=== PATIENT | male | born 1995 | race Caucasian/White ===

== ENCOUNTER 2017-12-14 19:34 | Emergency (ER) | payer SELFPAY ==
[~2017-12-14] VITALS: Ht 188 cm; Wt 81.7 kg
[2017-12-14] MEDS ORDERED: ALBU4 PO (19:48)
== END 2017-12-14 20:00 | disposition home or self-care (01) ==
LOC: ER 19:34
DX: R07.9 Chest pain, unspecified (principal); J45.909 Unspecified asthma, uncomplicated; F17.210 Nicotine dependence, cigarettes, uncomplicated
CPT/HCPCS: 99283

== ENCOUNTER 2018-08-16 13:49 | Emergency (ER) | payer MEDICAID ==
[~2018-08-16] VITALS: Ht 180.3 cm; Wt 90.7 kg
[~2018-08-16 13:49] MED LIST: ALBU4 PO
[2018-08-16] MEDS ORDERED: CLARITIN10 MG PO (14:06)
[2018-08-16] MEDS ORDERED: ALBU90OI INH (14:06)
== END 2018-08-16 14:11 | disposition home or self-care (01) ==
LOC: ER 13:49
DX: R06.00 Dyspnea, unspecified (principal); R05 Cough; F17.210 Nicotine dependence, cigarettes, uncomplicated; Z91.048 Other nonmedicinal substance allergy status
CPT/HCPCS: 99283

== ENCOUNTER 2018-12-14 16:19 | Emergency (ER) | payer OTHER ==
[~2018-12-14] VITALS: Ht 188 cm; Wt 83.9 kg
[~2018-12-14 16:19] MED LIST changes: +ALBU90OI INH; +CLARITIN10 MG PO
[2018-12-14] MEDS ORDERED: Naprosyn500 MG PO (18:37)
== END 2018-12-14 19:17 | disposition home or self-care (01) ==
LOC: ER 16:19
DX: S43.401A Unspecified sprain of right shoulder joint, initial encounter (principal); Z91.09 Other allergy status, other than to drugs and biological substances; Z79.899 Other long term (current) drug therapy; F17.290 Nicotine dependence, other tobacco product, uncomplicated; W19.XXXA Unspecified fall, initial encounter
CPT/HCPCS: 73030; 99283-25

== ENCOUNTER 2020-01-02 19:56 | Emergency (ER) | payer OTHER ==
[~2020-01-02] VITALS: Ht 188 cm; Wt 81.7 kg
[~2020-01-02 19:56] MED LIST changes: +Naprosyn500 MG PO
[2020-01-02] MEDS ORDERED: IBUP200 (20:08)
[2020-01-02] MEDS ORDERED: KETO10 PO (20:24)
[2020-01-02] MEDS ORDERED: Cyclobenzaprine5 MG PO (20:24)
== END 2020-01-02 20:45 | disposition home or self-care (01) ==
LOC: ER 19:56
DX: S39.012A Strain of muscle, fascia and tendon of lower back, initial encounter (principal); F17.200 Nicotine dependence, unspecified, uncomplicated; Z91.048 Other nonmedicinal substance allergy status; X50.0XXA Overexertion from strenuous movement or load, initial encounter; Y99.0 Civilian activity done for income or pay
CPT/HCPCS: 96372; 99283-25; J1885

== ENCOUNTER 2022-05-19 13:24 | Emergency (ER) | payer OTHER ==
[~2022-05-19] VITALS: Ht 188 cm; Wt 79.4 kg
[~2022-05-19 13:24] MED LIST changes: +Cyclobenzaprine5 MG PO; +IBUP200; +KETO10 PO
[2022-05-19 14:23] LABS: BASOPHILS ABSOLUTE AUTO 0.04 K/mm3 (0.00-0.23); BASOPHILS PERCENT AUTO 1 % (0-2); EOSINOPHILS ABSOLUTE AUTO 0.48 K/mm3 (0.00-0.68); EOSINOPHILS PERCENT AUTO 7 % (0-6); Hematocrit 39.3 % (37.0-53.0); IMMATURE GRAN ABSOLUTE AUTO 0.01 K/mm3 (0.00-0.10); IMMATURE GRAN PERCENT AUTO 0 % (0-1); LYMPHOCYTES PERCENT AUTO 24 % (21-46); MONOCYTES ABSOLUTE AUTO 0.75 K/mm3 (0.16-1.47); MONOCYTES PERCENT AUTO 11 % (4-13); Mean Corpuscular HGB 31.9 pg (26.0-34.0); Mean Corpuscular HGB Conc 35.6 g/dL (31.5-36.5); Mean Corpuscular Volume 90 fL (80-100); Mean Platelet Volume 9.9 fL (9.1-12.4); NEUTROPHILS PERCENT AUTO 57 % (41-73); Platelet Count 318 K/mm3 (150-400); RDW Coefficient Variation 11.6 % (11.7-14.2); RDW Standard Deviation 38.4 fL (35.1-46.3); Red Blood Cell Count 4.39 M/mm3 (4.30-5.90); White Blood Cell Count 6.98 K/mm3 (4.00-11.30)
[2022-05-19 14:59] LABS: Albumin, Blood 4.1 g/dL (3.4-5.0); Albumin/Globulin Ratio 1.1 (0.8-1.8); Bilirubin, Total 1.5 mg/dL (0.1-1.0); Bun/Creatinine Ratio 8.6 (12.0-20.0); Calcium, Blood 9.7 mg/dL (8.5-10.1); Creatinine, Blood 0.93 mg/dL (0.60-1.20); Globulin, Blood 3.7 g/dL (2.2-4.0); Potassium, Blood 3.6 mmol/L (3.5-5.5); Total Protein, Blood 7.8 g/dL (6.4-8.2)
== END 2022-05-19 16:34 | disposition home or self-care (01) ==
LOC: ER 13:24
PROVIDERS: Emergency Medicine
DX: R07.89 Other chest pain (principal); R20.2 Paresthesia of skin; F19.10 Other psychoactive substance abuse, uncomplicated; F41.9 Anxiety disorder, unspecified; J45.909 Unspecified asthma, uncomplicated; F17.290 Nicotine dependence, other tobacco product, uncomplicated
CPT/HCPCS: 71046; 80053; 84484; 85025; J7030

== ENCOUNTER 2023-02-23 22:34 | Emergency (ER) | payer OTHER ==
[~2023-02-23] VITALS: Ht 177.8 cm; Wt 59.0 kg
[2023-02-23 23:21] LABS: BASOPHILS ABSOLUTE AUTO 0.09 K/mm3 (0.00-0.23); BASOPHILS PERCENT AUTO 1 % (0-2); EOSINOPHILS PERCENT AUTO 8 % (0-6); Hematocrit 49.4 % (37.0-53.0); Hemoglobin 16.3 g/dL (13.5-17.5); IMMATURE GRAN ABSOLUTE AUTO 0.03 K/mm3 (0.00-0.10); IMMATURE GRAN PERCENT AUTO 0 % (0-1); LYMPHOCYTES ABSOLUTE AUTO 3.24 K/mm3 (0.84-5.20); LYMPHOCYTES PERCENT AUTO 27 % (21-46); MONOCYTES ABSOLUTE AUTO 0.96 K/mm3 (0.16-1.47); MONOCYTES PERCENT AUTO 8 % (4-13); Mean Corpuscular HGB 30.4 pg (26.0-34.0); Mean Corpuscular Volume 92 fL (80-100); Mean Platelet Volume 8.9 fL (9.1-12.4); NEUTROPHILS PERCENT AUTO 55 % (41-73); Platelet Count 330 K/mm3 (150-400); RDW Coefficient Variation 16.5 % (11.7-14.2); RDW Standard Deviation 54.6 fL (35.1-46.3); Red Blood Cell Count 5.37 M/mm3 (4.30-5.90); White Blood Cell Count 11.92 K/mm3 (4.00-11.30)
[2023-02-23 23:39] LABS: Albumin, Blood 3.9 g/dL (3.4-5.0); Bilirubin, Total 0.7 mg/dL (0.1-1.0); Bun/Creatinine Ratio 10.3 (12.0-20.0); Creatinine, Blood 0.88 mg/dL (0.60-1.20); Globulin, Blood 4.1 g/dL (2.2-4.0); Potassium, Blood 4.1 mmol/L (3.5-5.5)
== END 2023-02-23 23:59 | disposition home or self-care (01) ==
LOC: ER 22:34
PROVIDERS: Emergency Medicine
DX: T59.891A Toxic effect of other specified gases, fumes and vapors, accidental (unintentional), initial encounter (principal); J68.3 Other acute and subacute respiratory conditions due to chemicals, gases, fumes and vapors; J45.901 Unspecified asthma with (acute) exacerbation; R11.2 Nausea with vomiting, unspecified
CPT/HCPCS: 36415; 80053; 85025; 94640; 94664; 94762; 99284-25; A9270

== ENCOUNTER 2023-07-11 21:19 | Emergency (ER) | payer OTHER ==
[~2023-07-11] VITALS: Ht 188 cm; Wt 81.7 kg
[2023-07-11 21:52] VITALS: BP 118/85
[2023-07-11] MEDS ORDERED: ALBU90OI INH (21:56)
== END 2023-07-11 23:05 | disposition home or self-care (01) ==
LOC: ER 21:19
DX: S90.32XA Contusion of left foot, initial encounter (principal); S90.31XA Contusion of right foot, initial encounter; V09.9XXA Pedestrian injured in unspecified transport accident, initial encounter; J45.909 Unspecified asthma, uncomplicated; Z87.891 Personal history of nicotine dependence
CPT/HCPCS: 73620

== ENCOUNTER 2023-10-14 20:40 | Emergency (ER) | payer OTHER ==
[~2023-10-14] VITALS: Ht 188 cm; Wt 77.1 kg
[2023-10-14 20:54] LABS: BASOPHILS ABSOLUTE AUTO 0.04 K/mm3 (0.00-0.23); BASOPHILS PERCENT AUTO 0 % (0-2); EOSINOPHILS ABSOLUTE AUTO 0.54 K/mm3 (0.00-0.68); EOSINOPHILS PERCENT AUTO 5 % (0-6); Hematocrit 39.9 % (37.0-53.0); Hemoglobin 13.8 g/dL (13.5-17.5); IMMATURE GRAN ABSOLUTE AUTO 0.04 K/mm3 (0.00-0.10); IMMATURE GRAN PERCENT AUTO 0 % (0-1); LYMPHOCYTES ABSOLUTE AUTO 1.82 K/mm3 (0.84-5.20); LYMPHOCYTES PERCENT AUTO 17 % (21-46); MONOCYTES ABSOLUTE AUTO 1.22 K/mm3 (0.16-1.47); MONOCYTES PERCENT AUTO 11 % (4-13); Mean Corpuscular HGB 31.4 pg (26.0-34.0); Mean Corpuscular HGB Conc 34.6 g/dL (31.5-36.5); Mean Corpuscular Volume 91 fL (80-100); Mean Platelet Volume 9.1 fL (9.1-12.4); NEUTROPHILS ABSOLUTE AUTO 7.11 K/mm3 (1.96-9.15); NEUTROPHILS PERCENT AUTO 66 % (41-73); Platelet Count 274 K/mm3 (150-400); RDW Coefficient Variation 12.5 % (11.7-14.2); RDW Standard Deviation 41.6 fL (35.1-46.3); White Blood Cell Count 10.77 K/mm3 (4.00-11.30)
[2023-10-14 21:12] LABS: Albumin, Blood 4.1 g/dL (3.4-5.0); Albumin/Globulin Ratio 1.1 (0.8-1.8); Bilirubin, Total 0.8 mg/dL (0.1-1.0); Bun/Creatinine Ratio 12.5 (12.0-20.0); Calcium, Blood 8.7 mg/dL (8.5-10.1); Creatinine, Blood 1.04 mg/dL (0.60-1.20); Globulin, Blood 3.9 g/dL (2.2-4.0); Potassium, Blood 3.8 mmol/L (3.5-5.5)
[2023-10-14 22:30] VITALS: BP 141/95
== END 2023-10-14 22:45 | disposition home or self-care (01) ==
LOC: ER 20:40
PROVIDERS: Student in an Organized Health Care Education/Training Program
DX: S02.2XXA Fracture of nasal bones, initial encounter for closed fracture (principal); S00.511A Abrasion of lip, initial encounter; R68.84 Jaw pain; Y04.0XXA Assault by unarmed brawl or fight, initial encounter; J45.909 Unspecified asthma, uncomplicated; Z23 Encounter for immunization
CPT/HCPCS: 70450; 70486; 72125; 80053; 85025; 90471; 90714; 90715; 96374; 99285-25; J1885; J7030

== ENCOUNTER 2025-04-08 02:07 | Emergency (ER) | payer OTHER ==
[~2025-04-08] VITALS: Ht 188 cm; Wt 77.1 kg
[2025-04-08 02:24] VITALS: BP 133/86
[2025-04-08 02:46] LABS: Source, Urine Clean Catch
[2025-04-08 02:48] LABS: Bilirubin, Urine Neg (Neg); Blood, Urine 4+ (Neg); Glucose Qualitative, Urine Neg (Neg); Ketones, Urine Neg (Neg); Leukocyte Esterase, Urine 1+ (Neg); Nitrite, Urine Neg (Neg); Protein, Urine Neg (Neg); Specific Gravity, Urine 1.015 (1.003-1.022); Urobilinogen, Urine NORM (Normal)
[2025-04-08 03:02] LABS: Appearance, Urine Clear (Clear); Color, Urine Yellow (P-Yellow)
[2025-04-08 03:04] LABS: Bacteria Mod /hpf; Squamous Epithelial Cells Few /hpf (Few); White Blood Cells, Urine 0-2 /hpf (0-5)
[2025-04-08] MEDS ORDERED: Ketorolac Tromethamine 30mg Vial IV ONE (03:20)
[2025-04-08 05:11] LABS: BASOPHILS ABSOLUTE AUTO 0.06 K/mm3 (0.00-0.23); BASOPHILS PERCENT AUTO 1 % (0-2); EOSINOPHILS ABSOLUTE AUTO 0.56 K/mm3 (0.00-0.68); EOSINOPHILS PERCENT AUTO 5 % (0-6); Hematocrit 41.3 % (37.0-53.0); Hemoglobin 13.9 g/dL (13.5-17.5); IMMATURE GRAN ABSOLUTE AUTO 0.02 K/mm3 (0.00-0.10); IMMATURE GRAN PERCENT AUTO 0 % (0-1); LYMPHOCYTES ABSOLUTE AUTO 2.79 K/mm3 (0.84-5.20); LYMPHOCYTES PERCENT AUTO 24 % (21-46); MONOCYTES ABSOLUTE AUTO 1.12 K/mm3 (0.16-1.47); MONOCYTES PERCENT AUTO 10 % (4-13); Mean Corpuscular HGB 29.7 pg (26.0-34.0); Mean Corpuscular HGB Conc 33.7 g/dL (31.5-36.5); Mean Corpuscular Volume 88 fL (80-100); NEUTROPHILS ABSOLUTE AUTO 6.89 K/mm3 (1.96-9.15); NEUTROPHILS PERCENT AUTO 60 % (41-73); Platelet Count 296 K/mm3 (150-400); RDW Coefficient Variation 12.5 % (11.7-14.2); RDW Standard Deviation 40.5 fL (35.1-46.3); Red Blood Cell Count 4.68 M/mm3 (4.30-5.90); White Blood Cell Count 11.44 K/mm3 (4.00-11.30)
[2025-04-08 05:42] LABS: Albumin, Blood 4.4 g/dL (3.4-5.0); Albumin/Globulin Ratio 1.3 (0.8-1.8); Bun/Creatinine Ratio 18.7 (12.0-20.0); Calcium, Blood 9.4 mg/dL (8.5-10.1); Creatinine, Blood 0.97 mg/dL (0.60-1.20); Globulin, Blood 3.4 g/dL (2.2-4.0); Potassium, Blood 4.1 mmol/L (3.5-5.5); Total Protein, Blood 7.8 g/dL (6.4-8.2)
[2025-04-08] MEDS ORDERED: Ketorolac Tromethamine 15mg Vial IV ONE (08:15)
[2025-04-08] MEDS ORDERED: Mag Hydrox/AL Hydrox/Simeth 30 ML UDC PO ONE (08:15)
[2025-04-08] MEDS ORDERED: CEPH500 PO (08:17)
[2025-04-08] MEDS ORDERED: OMEP20ER PO (08:18)
== END 2025-04-08 08:50 | disposition home or self-care (01) ==
LOC: ER 02:07
PROVIDERS: Student in an Organized Health Care Education/Training Program
DX: N39.0 Urinary tract infection, site not specified (principal); R31.9 Hematuria, unspecified; J45.909 Unspecified asthma, uncomplicated
CPT/HCPCS: 74177; 80053; 81001; 85025; 87086; 96374-59; 99284-25; A9270; J1885; Q9967